=== PATIENT | female | born 2005 | race Caucasian/White ===

== ENCOUNTER 2023-09-21 10:26 | Emergency (ER) | payer OTHER, SELFPAY ==
[2023-09-21 10:39] VITALS: BP 111/76; PULSE 103; RESP 20; TEMP 36.4; O2SAT 99
--- NOTE | 2023-09-21 10:55 | ECG_ITS ---
Test Date: 2023-09-21 11:02:40 Measurements Intervals [place] Rate: 100 P: 60 AK: 130 QRS: 81 QRSD: 82 T: 33 QT: 332 QTc: 428 Interpretive Statements SINUS TACHYCARDIA POSSIBLE LEFT ATRIAL ENLARGEMENT RSR' IN V1 OR V2, PROBABLY NORMAL VARIANT MINIMAL Q WAVES- INFERIOR LEADS NONSPECIFIC T-WAVE ABNORMALITY- ANTERIOR LEADS BASELINE ARTIFACT- I, II, AVR BORDERLINE ECG No previous ECG available for comparison Electronically Signed On 09-21-2023 11:05:55 CDT by Gunnar Wallace D.O.
--- NOTE | 2023-09-21 10:56 | ED.GENADULT ---
HPI - General Adult General Chief complaint: Anxiety Stated complaint: panic attacks 20 weeks Time Seen by Provider: 09/21/23 10:52 History of Present Illness HPI narrative: Patient 18-year-old female who presents emergency department with chief complaint of anxiety. The patient reports she has been under more stress lately and reports she is approximately 20 weeks patient reports that she has been seen in another emergency department recently and decided to come to our emergency department today for re-evaluation the patient reports she is not on medications for anxiety reports she talked to her OB who recommended that she be re-evaluated somewhere else the patient reports that she has had thoughts of hurting herself but does not have a specific plan and reports that currently she would not act on it as she is Related Data Allergies Allergy/AdvReac Type Severity Reaction Status Date / Time sulfamethoxazole AdvReac Nausea and Verified 09/21/23 11:08 [From Bactrim] Vomiting trimethoprim [From Bactrim] AdvReac Nausea and Verified 09/21/23 11:08 Vomiting Review of Systems Review of Systems: A 10 system review of systems was completed on the patient and is negative except for what is stated in the HPI. Nursing and ancillary documentation was reviewed. PMFSH Social History Social History Substance use type: does not use Exam Narrative: GENERAL: Well-appearing, well-nourished, and in no acute distress. HEAD: Normocephalic, atraumatic. EYES: PERRLA and EOMI. ENT: Nares clear, no rhinorrhea or epistaxis. Mucous membranes moist. NECK: Supple. CHEST: Clear to auscultation. No respiratory distress. HEART: Regular rate and rhythm. No murmur heard. Normal peripheral pulses. ABDOMEN: Soft, nontender, nondistended, normal active bowel sounds. EXTREMITIES: Normal range of motion. No edema. SKIN: Warm, dry, no rash. NEURO: No focal deficits. Alert and oriented x3. PSYCH: Depressed mood and affect. Course Vital Signs Vital signs: Vital Signs Temperature 36.4 C 09/21/23 10:39 Pulse Rate 103 H 09/21/23 10:39 Respiratory Rate 20 09/21/23 10:39 Blood Pressure 111/76 09/21/23 10:39 Pulse Oximetry 99 09/21/23 10:39 Oxygen Delivery Room Air 09/21/23 10:39 Temperature 36.4 C 09/21/23 10:39 Pulse Rate 84 09/21/23 13:49 Respiratory Rate 15 09/21/23 13:49 Blood Pressure 115/79 09/21/23 13:49 Pulse Oximetry 100 09/21/23 13:49 Oxygen Delivery Room Air 09/21/23 10:39 Medical Decision Making MDM Narrative Medical decision making narrative: Differential diagnosis includes anxiety, suicidal ideation, UTI Laboratory studies showed normal CBC CMP was within normal limits TSH is normal toxicology screens are negative patient did have a UTI that patient be treated with Keflex Patient is medically cleared for psychiatric evaluation referral transfer and admission The patient was seen by mental health and was able to contract for safety. The patient will be started on hydroxyzine for anxiety Vital Signs Vital Signs: Vital Signs Temperature 36.4 C 09/21/23 10:39 Pulse Rate 103 H 09/21/23 10:39 Respiratory Rate 20 09/21/23 10:39 Blood Pressure 111/76 09/21/23 10:39 Pulse Oximetry 99 09/21/23 10:39 Oxygen Delivery Room Air 09/21/23 10:39 Temperature 36.4 C 09/21/23 10:39 Pulse Rate 84 09/21/23 13:49 Respiratory Rate 15 09/21/23 13:49 Blood Pressure 115/79 09/21/23 13:49 Pulse Oximetry 100 09/21/23 13:49 Oxygen Delivery Room Air 09/21/23 10:39 Lab Data 09/21/23 11:25 09/21/23 11:25 Labs: Lab Results 09/21/23 Range/Units 11:25 WBC 10.9 H (4.5-10.0) K/mm3 RBC 4.09 L (4.2-5.4) M/mm3 Hgb 11.6 L (12.0-15.0) g/dL Hct 34.2 L (37.0-47.0) % MCV 83.6 (80-100) fl MCH 28.4 (26-34) pg
[2023-09-21 11:25] VITALS: BP 121/79; PULSE 99; RESP 12; O2SAT 98
[2023-09-21 11:35] LABS: Basophils Percent Auto 0.2 % (0.2-1.2); Eosinophils Absolute Auto 0.1 K/mm3 (0-0.3); Eosinophils Percent Auto 1.3 % (0-4.4); Hematocrit 34.2 % (37.0-47.0); Hemoglobin 11.6 g/dL (12.0-15.0); Immature Granulocyte Absolute 0.04 K/mm3 (0.00-0.031); Immature Granulocyte Percent A 0.4 % (0-0.5); Lymphocytes Absolute Auto 1.69 K/mm3 (0.9-3.2); Lymphocytes Percent Auto 15.5 % (18.3-44.2); Mean Corpuscular HGB Conc 33.9 g/dl (32-36); Mean Corpuscular Hemoglobin 28.4 pg (26-34); Mean Corpuscular Volume 83.6 fl (80-100); Monocytes Absolute Auto 0.7 K/mm3 (0.1-0.6); Monocytes Percent Auto 6.8 % (2.6-8.5); Neutrophils Absolute Auto 8.3 K/mm3 (1.3-6.7); Neutrophils Percent Auto 75.8 % (45.5-73.1); Platelet Count Result 211 k/mm3 (150-375); Red Blood Count 4.09 M/mm3 (4.2-5.4); Red Cell Distribution Width 13.6 % (11.5-14.5); White Blood Count 10.9 K/mm3 (4.5-10.0)
[2023-09-21 11:47] LABS: Acetaminophen < 10 ug/mL (10-30); Ethanol < 10 mg/dL (<10); Salicylate < 1.0 mg/dL (2-20)
[2023-09-21 11:49] LABS: Alanine Aminotransferase 10 U/L (6-35); Albumin Level 4.1 g/dL (3.5-5.1); Alkaline Phosphatase 79 U/L (38-126); Anion Gap 9 mmol/L (4-12); Aspartate Amino Transferase 15 U/L (14-36); Bilirubin,Total 0.3 mg/dL (0.2-1.3); Blood Urea Nitrogen 11 mg/dL (7-17); Calcium 9.2 mg/dL (8.4-10.2); Carbon Dioxide 20 mmol/L (22-30); Chloride 107 mmol/L (98-107); Estimated CRCL calculation 173 ml/min; Estimated Glomerular Filt Rate > 60; Glucose 93 mg/dL (65-110); Potassium 3.8 mmol/L (3.4-5.0); Sodium 136 mmol/L (137-145)
[2023-09-21 11:55] LABS: Appearance Urine Cloudy (Clear); Bacteria Urine 2+ /hpf; Bilirubin Urine Negative (Negative); Blood Urine Negative (Negative); Color Urine Yellow (Yellow); Glucose Urine UA Negative (Negative); Ketones Urine Negative (Negative); Leukocyte Esterase Ur 2+ LEU/UL (Negative); Nitrate Urine Negative (Negative); Non Pathogenic Casts 0-2; Protein Urine Negative (Negative); RBC Urine 0-2 /hpf (0-2); Specific Grav Ur 1.019 (1.001-1.035); Squamous Epithelial Cell Urine Moderate /hpf (Few); Urobilinogen Urine 0.2 mg/dL (<2.0); WBC Urine 21-50 /hpf (0-3)
[2023-09-21 12:04] LABS: Add Urine Microscopic? YES
[2023-09-21 12:10] LABS: Amphetamine Screen Urine Negative (Negative); Barbiturate Screen Urine Negative (Negative); Benzodiazepines Screen Urine Negative (Negative); Cannabinoid Screen Urine Negative (Negative); Cocaine Screen Urine Negative (Negative); Methadone Screen Urine Negative (Negative); Opiate Screen Urine Negative (Negative); Phencyclidine Screen Urine Negative (Negative)
[2023-09-21 12:11] LABS: Influenza A QL RT-PCR Negative (Negative); Influenza B QL RT-PCR Negative (Negative); RSV RNA, RT-PCR Negative (Negative); SARS-CoV-2 RNA PCR Negative (Negative)
[2023-09-21] MEDS: CEPHALEXIN 500 MG CAPSULE PO (12:17)
[2023-09-21 12:18] VITALS: BP 114/77; PULSE 92; RESP 17; O2SAT 98
[2023-09-21 13:49] VITALS: BP 115/79; PULSE 84; RESP 15; O2SAT 100
== END 2023-09-21 14:22 | disposition home or self-care (01) ==
PROVIDERS: Emergency Provider Emergency Medicine; PCP Family Medicine
DX: O99.342 Other mental disorders complicating pregnancy, second trimester (principal); F41.9 Anxiety disorder, unspecified; O23.42 Unspecified infection of urinary tract in pregnancy, second trimester; N39.0 Urinary tract infection, site not specified; Z3A.20 20 weeks gestation of pregnancy; Z20.822 Contact with and (suspected) exposure to COVID-19
CPT/HCPCS: 36415; 80053; 80307; 81001; 84443; 85025; 87077; 87086; 87088; 87637; 93005; 99284; A9270